=== PATIENT | male | born 1980 | race Caucasian/White ===

== ENCOUNTER 2017-05-14 12:46 | Emergency (ER) | payer OTHER ==
[~2017-05-14] VITALS: Ht 175.3 cm; Wt 65.0 kg
[2017-05-14] MEDS ORDERED: BENADRYL50 MG PO (14:14)
[2017-05-14] MEDS ORDERED: CORTIZONE-10 PL57 GM TP (14:14)
[2017-05-14] MEDS ORDERED: PREDNISONE10 MG PO (14:14)
[2017-05-14 15:03] VITALS: BP 136/90
== END 2017-05-14 15:05 | disposition home or self-care (01) ==
LOC: EME 12:46
DX: L23.7 Allergic contact dermatitis due to plants, except food (principal)